=== PATIENT | female | born 1960 | race American Indian/Alaskan Native ===

== ENCOUNTER 2018-01-24 16:23 | Emergency (ER) | payer SELFPAY ==
--- NOTE | 2018-01-24 17:29 | RAD REPORT ---
EXAM DESCRIPTION: RAD - Lumbar Spine 3 Views - 01/24/2018 5:18 pm CLINICAL HISTORY: Back pain FINDINGS: Slight anterior subluxation L4 on L5. Bones are osteoporotic. No fracture seen. Mild to moderate spondylosis lumbar spine. Osteoarthritis involves facet joints lower lumbar spine. Atherosclerotic changes involve aorta
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
[2018-01-24 18:12] LABS: Urine Blood 2+ (NEG); Urine Glucose NEGATIVE (NEG); Urine Protein NEGATIVE (NEG); Urine pH 5.5 (5.0-7.0)
[2018-01-24] MEDS ORDERED: IBUPROFEN 400 MG TAB ONE (18:15)
[2018-01-24] MEDS ORDERED: IBUPROFEN 200 MG TAB PO ONE (18:16)
== END 2018-01-24 18:38 | disposition home or self-care (01) ==
LOC: ER 16:23
DX: M54.5 Low back pain (principal); V89.2XXA Person injured in unspecified motor-vehicle accident, traffic, initial encounter; Y92.410 Unspecified street and highway as the place of occurrence of the external cause; M47.816 Spondylosis without myelopathy or radiculopathy, lumbar region; M81.0 Age-related osteoporosis without current pathological fracture
CPT/HCPCS: 72100; 81003; 81025; 99284